=== PATIENT | male | born 1995 | race Caucasian/White ===

== ENCOUNTER 2019-10-22 22:07 | Emergency (ER) | payer MEDICAID ==
[~2019-10-22] VITALS: Ht 185.4 cm; Wt 57.8 kg
[2019-10-22 22:42] LABS: Urine Amorphous Crystal MOD /hpf (None Seen); Urine Bacteria NONE SEEN /hpf (None Seen); Urine Blood Negative /uL (Negative); Urine Mucus FEW (None Seen); Urine Specific Gravity 1.023 (1.001-1.035); Urine WBC 6 /hpf (0 - 3)
[2019-10-22 22:48] LABS: Basophils # (auto) 0 uL; Basophils % (auto) 0.3 % (0.0-2.0); Eosinophils # (auto) 0.1 uL; Eosinophils % (auto) 0.4 % (0.0-7.0); Hematocrit 45.3 % (41.0-53.0); Hemoglobin 15.6 g/dL (13.5-17.5); Lymphocytes # (auto) 1.3 uL; Mean Corpuscular Hgb Conc. 34.5 g/dL (32.0-36.0); Monocytes # (auto) 0.6 uL; Neutrophils # (auto) 9.6 uL; Neutrophils % (auto) 83.3 % (37.0-80.0); Nucleated Red Blood Cells % 0.1 %; Platelet Count (auto) 161 10^3/uL (140-450); Red Blood Cells 5.04 10^6/uL (4.5-5.90); Red Cell Distribution Width 13.2 % (11.8-14.3); White Blood Cell 11.6 10^3/uL (4.4-10.8)
[2019-10-22 22:59] LABS: Alcohol, Urine < 3.0 mg/dL (0-5); Amphetamine Screen, Urine NEGATIVE (NEGATIVE); Barbiturate Scree,Urine NEGATIVE (NEGATIVE); Benzodiazephine Screen, Urine NEGATIVE (NEGATIVE); Cannabinoid Screen, Urine NEGATIVE (NEGATIVE); Cocaine Screen, Urine NEGATIVE (NEGATIVE); Opiate Scree,Urine NEGATIVE (NEGATIVE); Phencyclidine Screen, Urine NEGATIVE (NEGATIVE)
[2019-10-22 23:10] LABS: Alanine Aminotransferase 21 U/L (16-61); Albumin 4.6 g/dL (3.4-5.0); Anion Gap 11 (5-15); Aspartate Aminotransferase 13 U/L (15-37); BUN/Creatinine Ratio 18.6; Blood Urea Nitrogen 16 mg/dL (7-18); Carbon Dioxide 23 mmol/L (21-32); Chloride 105 mmol/L (98-107); GFR African American 144 mL/min; GFR Non-African American 119 mL/min; Glucose 103 mg/dL (74-106); Magnesium 2.2 mg/dL (1.6-2.6); Potassium 3.3 mmol/L (3.5-5.1); Sodium 139 mmol/L (136-145)
[2019-10-22 23:15] LABS: Alkaline Phosphatase 68 U/L (45-117); Bilirubin, Total 0.6 mg/dL (0.2-1.0); Total Protein 7.9 g/dL (6.4-8.2)
[2019-10-23 03:00] VITALS: BP 129/74
[2019-10-23 03:03] LABS: INR 1.17 (0.9-1.15); Partial Thromboplastin Time 27.9 sec (23.64-32.05)
== END 2019-10-23 05:15 | disposition home or self-care (01) ==
LOC: ER 22:13
DX: F43.0 Acute stress reaction (principal)
CPT/HCPCS: 36415; 71046; 80053; 80307; 81001; 83735; 84443; 84484; 85025; 85379; 85610; 85730; 93005